=== PATIENT | male | born 1990 | race Hispanic/Latino ===

== ENCOUNTER 2016-10-23 12:40 | Emergency (ER) | payer SELFPAY ==
[~2016-10-23] VITALS: Ht 188 cm; Wt 63.0 kg
[2016-10-23] MEDS ORDERED: NAPROXEN500 MG PO (14:45)
[2016-10-23 15:11] VITALS: BP 136/78
== END 2016-10-23 15:11 | disposition home or self-care (01) ==
LOC: EME 12:40
DX: S93.401A Sprain of unspecified ligament of right ankle, initial encounter (principal); R60.0 Localized edema; W18.41XA Slipping, tripping and stumbling without falling due to stepping on object, initial encounter; Y92.007 Garden or yard of unspecified non-institutional (private) residence as the place of occurrence of the external cause
CPT/HCPCS: 73610; 99281; 99283